=== PATIENT | female | born 1950 | race Caucasian/White ===

== ENCOUNTER 2016-08-05 10:12 | Outpatient (CLI) | payer MEDICARE ==
--- NOTE | 2016-08-05 14:25 | Diagnostic Imaging Report ---
SAMSON FORREST [facility] [address] [facility]ly [facility], [facility] [address] [address] Report Submission Date: Aug 05, 2016 10:51:07 AM CDT Patient Study Name: CHRISTY SHANE Date: Aug 05, 2016 10:31:49 AM CDT Modality Type: CR Gender: F Description: SPINE : 48 Institution: [facility] Physician: SAMSON FORREST Lumbar spine - three views Clinical history: Lifting injury 9 days ago. Persistent pain. Findings: Examination lumbar spine in AP, lateral and lateral coned-down views demonstrates mild levoscoliosis with the apex at L2-3. The pedicles are intact and the paravertebral soft tissues are within normal limits. There are surgical clips in the right upper quadrant from prior cholecystectomy. There is mild narrowing of the L3-4 disc space with osteophyte formation. There is no evident fracture and no lytic or blastic lesion. Impression: 1. Mild spondylosis. 2. Levoscoliosis. Electronically signed on Aug 05, 2016 10:51:07 AM CDT by: Christopher PENNINGTON
== END 2016-08-05 10:14 ==
LOC: RAD 10:12
PROVIDERS: ATTEND Physician Assistant
DX: M54.5 Low back pain (principal)
CPT/HCPCS: 72100

== ENCOUNTER 2017-12-03 09:51 | Outpatient (CLI) | payer SELFPAY ==
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
== END 2017-12-03 09:53 ==
LOC: RAD 09:51
PROVIDERS: ATTEND Physician Assistant
DX: M79.672 Pain in left foot (principal)
CPT/HCPCS: 73630

== ENCOUNTER 2018-07-28 11:27 | Outpatient (CLI) | payer MEDICARE ==
[2018-07-28 11:52] LABS: MEAN CORPUSCULAR HEMOGLOBIN 30.1 pg (28.0-34.0)
[2018-07-28 11:53] LABS: BASOPHILS % 0.6 % (0.0-1.5); EOSINOPHILS % 3.1 % (0.0-6.8); MONOCYTES % 4.6 % (0.0-11.0); NEUTROPHILS # 4.5 # k/uL (1.4-7.7)
[2018-07-28 12:31] LABS: eGFR (Non-African) > 60
== END 2018-07-28 11:55 ==
LOC: LAB 11:27
PROVIDERS: ATTEND Family Medicine
DX: R00.0 Tachycardia, unspecified (principal)
CPT/HCPCS: 36415; 80053; 84443; 84484; 85025

== ENCOUNTER 2018-11-26 00:50 | Emergency (ER) | payer MEDICARE ==
--- NOTE | 2018-11-26 01:10 | ED Physician Documentation ---
Flank Pain - HISTORIAN Historian: patient - HPI Stated Complaint: left flank pain x 2 hours Chief Complaint: Flank Pain Onset: hours (2) Duration: constant Timing: still present Severity: moderate (8/10) Quality: pain Associated Symptoms: nausea Exacerbated by: nothing Relieved by: nothing Further Comments: yes (She states she has had left lower flank pain wrapping around to front of abdomen for last two hours. She has not tried any OTC meds for pain. She has no urinary complaints. Denies any blood in her urine. She has some nausea. She has a history of fibromyalgia) - ROS CONST: no problems GI/: none CVS/RESP: denies: shortness of breath, hurts to breath EYES/ENT: none MS/SKIN/LYMPH: none NEURO/PSYCH: none - SOCIAL HX Smoking History: non-smoker Alcohol Use: none Drug Use: none - FAMILY HX Family History: none - PAST HX Past History: kidney stones Ischemic Bowel Risk Factors: none Immunizations: UTD Medications: none Allergies: see nurses note - REVIEWED ASSESSMENTS Nursing Assessment Reviewed: Yes Vitals Reviewed: Yes Progress - Progress Progress: 0149: Pain has improved to 4/10 and her nausea is improved DG ED Results Lab/Radiology - Radiology Radiology Impressions: Preliminary report 1. 6 mm left ureteral calculus at the L3-4 level with left obstructive uropathy. 2. Pelvic calcifications consistent with phleboliths. 3. Postoperative changes. 4. Negative appendix. Mild diverticulosis. 5. Lumbar spondylosis. Electronically signed on Nov 26, 2018 2:00:10 AM CDT by: Christopher Guzman Abdominal Pain Physical Exam - Physical Exam General Appearance: no acute distress, alert EENT: eye inspection normal, no signs of dehydration NECK: normal inspection RESPIRATORY: no resp distress, chest non-tender, breath sounds normal CVS: reg rate & rhythm, heart sounds normal ABDOMEN: soft, normal bowel sounds, no distension BACK: normal inspection, CVA tenderness (L) SKIN: warm/dry EXTREMITIES: non-tender, normal range of motion, no evidence of injury, no edema NEURO: oriented X3 Discharge Clincal Impression: Flank pain, Kidney stone on left side Referrals: Alisson Brizuela MD [Primary Care Provider] - 2 Days Comments: 1. Tramadol 50 mg take 1 by mouth every 8 hours as needed for pain 2. Zofran 4 mg take 1 by mouth every 8 hours as needed for nausea 3. Flomax 0.4 mg take 1 by mouth daily 4. Follow up with PCP In 2 days 5. Increase fluids 6. Return to ER for any increasing concerns Condition: Stable Disposition: 01 HOME, SELF-CARE Decision to Admit: NO Date of Decison to Admit: 11/26/18 Decision Time: 02:20
[2018-11-26] MEDS ORDERED: KETOROLAC TROMETHAMINE 30 MG/1ML VIAL IV ONE (01:13)
[2018-11-26] MEDS ORDERED: 0.9 % SODIUM CHLORIDE 1,000 ML IV ONE (01:14)
[2018-11-26] MEDS ORDERED: ONDANSETRON HCL/PF 4 MG/ 2ML VIAL IVP ONE (01:24)
[2018-11-26] MEDS ORDERED: TAMSULOSIN HCL 0.4 MG CAP.ER.24H PO ONE (01:52)
--- NOTE | 2018-11-26 02:07 | Diagnostic Imaging Report ---
FLAKITO LONDON [facility] [address] [facility] [address] [place], [place]. [address] Report Submission Date: Nov 26, 2018 2:00:10 AM CDT Patient Study Name: CHRISTY SHANE Date: Nov 26, 2018 1:38:51 AM CDT Modality Type: CT\SR Gender: F Description: CT ABD PELVIS W/O CO : 48 Institution: [facility] Physician: FLAKITO LONDON Preliminary report 1. 6 mm left ureteral calculus at the L3-4 level with left obstructive uropathy. 2. Pelvic calcifications consistent with phleboliths. 3. Postoperative changes. 4. Negative appendix. Mild diverticulosis. 5. Lumbar spondylosis. Electronically signed on Nov 26, 2018 2:00:10 AM CDT by: Christopher PENNINGTON
[2018-11-26 02:48] VITALS: BP 171/73
[2018-11-26 08:25] LABS: BASOPHILS % 0.4 % (0.0-1.5); NEUTROPHILS # 5.1 # k/uL (1.4-7.7)
[2018-11-26 08:26] LABS: eGFR (Non-African) > 60
[2018-11-29 07:00] LABS: APPEARANCE,URINE CLEAR (CLEAR); COLOR,URINE YELLOW (YELLOW); OCCULT BLOOD,URINE 2+ (NEGATIVE); PH URINE 5.5 (5.0 - 8.0); UROBILINOGEN URINE 0.2 Eu (0.2-1.0)
== END 2018-11-26 02:43 | disposition home or self-care (01) ==
LOC: ED 00:50
DX: N20.0 Calculus of kidney (principal)
CPT/HCPCS: 74176; 80053; 81002; 85025; 87086; 87186; 96361; 96374; 96375; 99284; J1885; J2405; J7030; S1016

== ENCOUNTER 2018-12-06 09:10 | Outpatient (CLI) | payer MEDICARE ==
[2018-12-03 11:25] VITALS: BP 137/71
[2018-12-06 10:03] LABS: BASOPHILS % 0.5 % (0.0-1.5); NEUTROPHILS # 4.8 # k/uL (1.4-7.7)
[2018-12-06 10:04] LABS: HYPOCHROMASIA 1+ (NEGATIVE); SEGMENTED NEUTROPHILS % 65 % (39-79)
--- NOTE | 2018-12-06 10:17 | Diagnostic Imaging Report ---
YUNIER RUANO [facility] [address] [facility]ly [facility] [address] [address] Report Submission Date: Dec 06, 2018 10:11:17 AM CDT Patient Study Name: CHRISTY SHANE Date: Dec 06, 2018 9:24:52 AM CDT Modality Type: DX Gender: F Description: CHEST 2VIEW : 48 Institution: [facility] Physician: YUNIER RUANO Examination: PA and lateral chest. History: Evaluate lung guo. Comparison exam: None provided. Findings: PA and lateral views of the chest demonstrates a prominent cardiac and mediastinal silhouette. Tortuous aorta. Bibasilar haziness with blunting of the posterior margins and posterior sulci, left greater than right. Articular degenerative changes. Impression: Left greater than right basilar infiltrates/effusions. Mild cardiomegaly. Electronically signed on Dec 06, 2018 10:11:17 AM CDT by: Geoffrey PENNINGTON
== END 2018-12-06 09:13 ==
LOC: LAB 09:10
PROVIDERS: ATTEND Family Medicine
DX: R78.81 Bacteremia (principal)
CPT/HCPCS: 36415; 71046; 85025; 87040